=== PATIENT | female | born 1960 | race Caucasian/White ===

== ENCOUNTER 2017-12-23 02:17 | Emergency (ER) | payer OTHER, SELFPAY ==
[2017-12-23 02:20] VITALS: BP 182/93; PULSE 72; RESP 18; TEMP 36.3; O2SAT 95; BMI 37.0
[2017-12-23 02:45] LABS: Bacteria 0 SEEN /hpf (None Seen); Color, Urine Yellow (Yellow); Glucose, Dipstick Normal (Normal); Ketone-Dipstick Negative (Negative); Leukocyte Esterase-Dipstick 500 /ul (Negative); Mucous, Urine 0 SEEN /hpf (<or=2+); Nitrite-Dipstick Positive (Negative); Occult Blood-Urine 50 /ul (Negative); Protein-Dipstick 30 mg/dl (Negative); Urine Bilirubin Dipstick Negative (Negative); Urine Clarity Sl. Cloudy (Clear); Urine Urobilinogen Normal (Normal)
[2017-12-23 02:51] LABS: Red Blood Cells-Urine 0-5 SEEN /hpf (0-5); Squamous Epithelial Cells - UA 0-5 SEEN /hpf (5-10); White Blood Cells 25-50 SEEN /hpf (0-5)
--- NOTE | 2017-12-23 02:53 | ED.VISSUMM ---
"- ER Visit Summary Date of Service: 12/23/17 Chief Complaint: Dysuria History of Present Illness: The patient is a 57 F who presents to the emergency department with a 4-1/2-hour history of urinary frequency and dysuria. Patient states she was diagnosed with UTI last month and was placed on unknown antibiotic. No flank pain or vomiting. No fevers. She has a history of atrial fibrillation and is on Coumadin. Physical Examination: Afebrile vital signs stable Please see T-sheet for details Specifically no abdominal pain or CVA tenderness. Test Results: Urinalysis positive for nitrates and leukocyte esterase. 25-50 white blood cells. INR was Emergency Department Course and Treatment: Patient will receive Keflex and Pyridium. Instructions to follow-up with primary care return if worsening or concerns Impression: 1. Acute cystitis 2. Coumadin coagulopathy This note was generated with [employer] dictation software. It may contain incorrect words, spelling, and punctuation that were not noted in review of the chart prior to signing ED Disposition - Plan for ED Patient: Disposition: Home or Assisted Living Chief Complaint: Complaint Instructions: ED UTI Cystitis Female Prescriptions: Cephalexin [Keflex] 500 mg PO Q6 #28 cap Phenazopyridine HCl [Pyridium] 200 mg PO TID #9 tab Referrals: Briana Baker MD [Primary Care Provider] - 1 Week"
--- NOTE | 2017-12-23 02:56 | ED.DCSUM_ITS ---
- ER Visit Summary Date of Service: 12/23/17 Chief Complaint: Dysuria History of Present Illness: The patient is a 57 F who presents to the emergency department with a 4-1/2-hour history of urinary frequency and dysuria. Patient states she was diagnosed with UTI last month and was placed on unknown antibio tic. No flank pain or vomiting. No fevers. She has a history of atrial fibrillation and is on Coumadin. Physical Examination: Afebrile vital signs stable Please see T-sheet for details Specifically no abdominal pain or CVA tenderness. Test Results: Urinalysis positive for nitrates and leukocyte esterase. 25-50 white blood cells. INR was Emergency Department Course and Treatment: Patient will receive Keflex and Pyridium. Instructions to follow-up with primary care return if worsening or concerns Impression: 1. Acute cystitis 2. Coumadin coagulopathy This note was generated with [employer] dictation software. It may contain incorrect words, spelling, and punctuation that were not noted in review of the chart prior to signing ED Disposition - Plan for ED Patient: Disposition: Home or Assisted Living Chief Complaint: Complaint Instructions: ED UTI Cystitis Female Prescriptions: Cephalexin [Keflex] 500 mg PO Q6 #28 cap Phenazopyridine HCl [Pyridium] 200 mg PO TID #9 tab Referrals: Briana Baker MD [Primary Care Provider] - 1 Week
[2017-12-23 03:11] LABS: International Normalized Ratio 1.8
[2017-12-23] MEDS: Cephalexin 250 MG Capsule 500 MG PO (03:36)
[2017-12-23] MEDS: Phenazopyridine 95 MG Tablet 190 MG PO (03:36)
[2017-12-23 04:19] VITALS: BP 152/84; PULSE 65; O2SAT 93
== END 2017-12-23 04:20 | disposition home or self-care (01) ==
PROVIDERS: Emergency Provider Emergency Medicine; Family Provider Family Medicine; PCP Internal Medicine
DX: N30.00 Acute cystitis without hematuria (principal); B96.89 Other specified bacterial agents as the cause of diseases classified elsewhere; I48.91 Unspecified atrial fibrillation; Z79.01 Long term (current) use of anticoagulants; Z79.899 Other long term (current) drug therapy
CPT/HCPCS: 81001; 85610; 87077; 87086; 87088; 87186; 99283

== ENCOUNTER → 2018-03-14 13:30 | Outpatient (CLI) | payer OTHER, SELFPAY ==
[2018-03-14 13:54] LABS: Prothrombin Time (Protime)PT. 23.1 SECONDS (11.7-14.9)
== END ==
PROVIDERS: Family Provider Internal Medicine; PCP Internal Medicine; Referring Provider Internal Medicine; Visit Provider Internal Medicine
DX: I48.0 Paroxysmal atrial fibrillation (principal)
CPT/HCPCS: 85610

== ENCOUNTER 2018-08-03 09:06 | Emergency (ER) | payer OTHER, SELFPAY ==
[2018-08-03] VITALS (9 sets, daily range): BP systolic 144–210; BP diastolic 84–113; PULSE 65–75; RESP 14–18; TEMP 36.4; O2SAT 93–96; BMI 34.7
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
--- NOTE | 2018-08-03 09:22 | EKG12_ITS ---
Test Reason : CHEST OTHER Blood Pressure : / mmHG Vent. Rate : 065 BPM Atrial Rate : 065 BPM P-R Int : 188 ms QRS Dur : 108 ms QT Int : 522 ms P-R-T Axes : 030 -39 045 degrees QTc Int : 542 ms Normal sinus rhythm Possible Left atrial enlargement Left axis deviation Abnormal ECG Confirmed by CESAR MACK, NATE ([id number]), offline editor DAT PATTERSON ([id number]) on 08/06/2018 1:43:00 PM Referred By: DMITRY Confirmed By:NATE GUERRERO MD
[2018-08-03] MEDS: 0.9% Normal Saline 1,000 ML 150 ML IV (09:39)
[2018-08-03 09:50] LABS: Erythrocyte Sedimentation Rate 15 mm/hr (0-30)
[2018-08-03 09:52] LABS: Absolute Lymphocyte Count 1.46 X10^3/ul (0.83-4.51); Absolute Neutrophil Count 10.6 X10^3/uL (2.0-7.7); Basophil# 0.04 X10^3/uL; Basophil% 0.3 % (0-1); Eosinophil# 0.06 X10^3/uL; Eosinophils% 0.4 % (0-5); Hematocrit 45.1 % (37-47); Hemoglobin 15.6 g/dl (12.0-15.0); Lymphocyte # 1.46 X10^3/ul (4.0); Lymphocyte % 10.8 % (19-41); Mean Corp Hgb Conc 34.6 g/gl (32-36); Mean Corpuscular Hgb 30.5 pg (27.0-32.0); Mean Corpuscular Volume 88.3 fL (81-99); Mean Platelet Vol. 10.5 fl (6.2-12.0); Monocyte# 1.31 X10^3/uL; Monocyte% 9.7 % (0-10); Neutrophil % 78.7 % (47-70); Platelet Count 381 K/mm3 (150-450); RBC Distribution Width CV 15.1 % (11.6-14.6); RBC Distribution Width SD 48.6 fl (35.1-43.9); Red Blood Count 5.11 M/mm3 (4.2-5.4); White Blood Count 13.5 K/mm3 (4.4-11.0)
[2018-08-03 09:53] LABS: POSITIVE COUNT NO; POSITIVE DIFFERENTIAL NO; POSITIVE MORPHOLOGY NO
[2018-08-03 09:56] LABS: International Normalized Ratio 2.2; Prothrombin Time (Protime)PT. 24.8 SECONDS (11.7-14.9)
[2018-08-03 10:11] LABS: Anion Gap 9 (5-15); BUN 17 mg/dL (7-18); BUN/Creat Ratio 15.3 RATIO (10-20); Calcium,Total 9.3 mg/dL (8.5-10.1); Chloride 103 mmol/L (98-107); Creatinine, Serum 1.11 mg/dL (0.55-1.02); EST Glomerular Filtration Rate 53 mL/min (>60); Est Glom Filt Rate - Afr Amer 64 mL/min (>60); Estimated Creatinine Clearance 50.46 ml/min; Glucose 121 mg/dL (74-106); Potassium 3.7 mmol/L (3.5-5.1); Sodium Level 141 mmol/L (136-145)
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
[2018-08-03] MEDS: Nitroglycerin (INPATIENT USE) 0.4 MG TAB.SUBL SUBLINGUAL ×3 (12:06→12:17)
[2018-08-03] MEDS: Nitroglycerin Oint 1 INCH PACKET TRANSDERM. (12:35)
--- NOTE | 2018-08-03 14:12 | PCM.DC ---
You will use the following diet at home:: No restrictions Discharge Activity: Return to Normal Activity Call your doctor if you observe: Shortness of breath Allergies/Adverse Reactions: Allergies lisinopril Allergy (Verified 08/03/18 09:24) Other COUGH Medications to take at Discharge Atorvastatin Calcium [Lipitor] 10 mg PO QHS 07/14/14 Flecainide [Tambocor] 75 mg PO BID 07/14/14 Hydrochlorothiazide [Hctz] 25 mg PO DAILY 07/14/14 Metoprolol Tartrate [Lopressor (beta collin)] 75 mg PO BID 07/14/14 Warfarin [Coumadin] 5 mg PO DAILY 07/14/14 Kdur 2 tab PO DAILY 08/03/18 Orders to be completed after discharge: Chest WITH Contrast [CT] Time Frame: 3 Months, Location: None Selected Primary Care Physician: Briana Baker MD [Primary Care Provider] - Test Results: Test results from this visit will be discussed in further detail at your follow-up appointment, if applicable. Proposed Discharge Date: 08/03/18
--- NOTE | 2018-08-03 14:15 | DCINST_ITS ---
You will use the following diet at home:: No restrictions Discharge Activity: Return to Normal Activity Call your doctor if you observe: Shortness of breath Allergies/Adverse Reactions: Allergies lisinopril Allergy (Verified 08/03/18 09:24) Other COUGH Medications to take at Discharge Atorvastatin Calcium [Lipitor] 10 mg PO QHS 07/14/14 Flecainide [Tambocor] 75 mg PO BID 07/14/14 Hydrochlorothiazide [Hctz] 25 mg PO DAILY 07/14/14 Metoprolol Tartrate [Lopressor (beta collin)] 75 mg PO BID 07/14/14 Warfarin [Coumadin] 5 mg PO DAILY 07/14/14 Kdur 2 tab PO DAILY 08/03/18 Orders to be completed after discharge: Chest WITH Contrast [CT] Time Frame: 3 Months, Location: None Selected Primary Care Physician: Briana Baker MD [Primary Care Provider] - Test Results: Test results from this visit will be discussed in further detail at your follow- up appointment, if applicable. Proposed Discharge Date: 08/03/18
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
== END 2018-08-03 14:39 | disposition home or self-care (01) ==
LOC: ED 09:48
PROVIDERS: Emergency Provider Emergency Medicine; Family Provider Internal Medicine; PCP Internal Medicine
DX: M94.0 Chondrocostal junction syndrome [Tietze] (principal); R07.81 Pleurodynia; R91.8 Other nonspecific abnormal finding of lung field; I48.0 Paroxysmal atrial fibrillation; I10 Essential (primary) hypertension; E78.00 Pure hypercholesterolemia, unspecified; Z79.01 Long term (current) use of anticoagulants
CPT/HCPCS: 36415; 71275; 80048; 84484; 85025; 85610; 85652; 93005; 99285; J7030; Q9967; A4216

== ENCOUNTER → 2018-10-31 13:41 | Outpatient (CLI) | payer OTHER, SELFPAY ==
[2018-08-03 09:08] VITALS: BMI 34.7
[2018-10-31 14:03] LABS: International Normalized Ratio 1.9; Prothrombin Time (Protime)PT. 21.3 SECONDS (11.7-14.9)
== END ==
PROVIDERS: Family Provider Internal Medicine; PCP Internal Medicine; Referring Provider Internal Medicine; Visit Provider Internal Medicine
DX: I48.0 Paroxysmal atrial fibrillation (principal)
CPT/HCPCS: 85610

== ENCOUNTER → 2018-11-07 14:32 | Outpatient (CLI) | payer OTHER, SELFPAY ==
[2018-08-03 09:08] VITALS: BMI 34.7
[2018-11-07 14:53] LABS: International Normalized Ratio 2.2; Prothrombin Time (Protime)PT. 24.2 SECONDS (11.7-14.9)
== END ==
PROVIDERS: Family Provider Internal Medicine; PCP Internal Medicine; Referring Provider Internal Medicine; Visit Provider Internal Medicine
DX: I48.0 Paroxysmal atrial fibrillation (principal)
CPT/HCPCS: 85610

== ENCOUNTER → 2018-11-28 13:31 | Outpatient (CLI) | payer OTHER, SELFPAY ==
[2018-08-03 09:08] VITALS: BMI 34.7
[2018-11-28 13:50] LABS: International Normalized Ratio 2.2; Prothrombin Time (Protime)PT. 24.5 SECONDS (11.7-14.9)
== END ==
PROVIDERS: Family Provider Internal Medicine; PCP Internal Medicine; Referring Provider Internal Medicine; Visit Provider Internal Medicine
DX: I48.0 Paroxysmal atrial fibrillation (principal)
CPT/HCPCS: 85610

== ENCOUNTER → 2018-12-26 14:16 | Outpatient (CLI) | payer OTHER, SELFPAY ==
[2018-08-03 09:08] VITALS: BMI 34.7
[2018-12-26 14:37] LABS: International Normalized Ratio 2.5; Prothrombin Time (Protime)PT. 26.7 SECONDS (11.7-14.9)
== END ==
PROVIDERS: Family Provider Internal Medicine; PCP Internal Medicine; Referring Provider Internal Medicine; Visit Provider Internal Medicine
DX: I48.0 Paroxysmal atrial fibrillation (principal)
CPT/HCPCS: 85610

== ENCOUNTER → 2019-01-23 14:07 | Outpatient (CLI) | payer OTHER, SELFPAY ==
[2018-08-03 09:08] VITALS: BMI 34.7
[2019-01-23 14:39] LABS: International Normalized Ratio 2.8; Prothrombin Time (Protime)PT. 29.9 SECONDS (11.7-14.9)
== END ==
PROVIDERS: Family Provider Internal Medicine; PCP Internal Medicine; Referring Provider Internal Medicine; Visit Provider Internal Medicine
DX: I48.0 Paroxysmal atrial fibrillation (principal)
CPT/HCPCS: 85610

== ENCOUNTER → 2020-03-05 | Outpatient (CLI) | payer OTHER, SELFPAY ==
[2018-08-03 09:08] VITALS: BMI 34.7
[2020-03-05 11:04] LABS: International Normalized Ratio 2.3; Prothrombin Time (Protime)PT. 25.1 SECONDS (11.7-14.9)
== END | disposition home or self-care (01) ==
LOC: LABSPEC 10:34
PROVIDERS: PCP Internal Medicine; Referring Provider Internal Medicine; Visit Provider Internal Medicine
DX: I48.20 Chronic atrial fibrillation, unspecified (principal)
CPT/HCPCS: 85610

== ENCOUNTER → 2020-04-01 | Outpatient (CLI) | payer OTHER, SELFPAY ==
[2018-08-03 09:08] VITALS: BMI 34.7
[2020-04-01 12:08] LABS: International Normalized Ratio 2.1; Prothrombin Time (Protime)PT. 22.8 SECONDS (11.7-14.9)
== END | disposition home or self-care (01) ==
LOC: LABSPEC 11:37
PROVIDERS: PCP Internal Medicine; Visit Provider Internal Medicine
DX: I48.20 Chronic atrial fibrillation, unspecified (principal)
CPT/HCPCS: 85610

== ENCOUNTER → 2021-07-14 | Outpatient (CLI) | payer OTHER, SELFPAY ==
[2021-07-14 13:33] LABS: International Normalized Ratio 1.5
== END | disposition home or self-care (01) ==
LOC: LAB 13:08
PROVIDERS: PCP Internal Medicine; Visit Provider Internal Medicine
DX: I48.20 Chronic atrial fibrillation, unspecified (principal)
CPT/HCPCS: 85610